=== PATIENT | male | born 1980 | race African-American/Black ===

== ENCOUNTER 2018-09-09 15:36 | Outpatient (CLI) | payer OTHER ==
--- NOTE | 2018-09-09 16:46 | MRI ---
LEFT KNEE MRI WITHOUT IV CONTRAST: History: Left knee pain since April. Technique: Multiplanar, multisequence MRI examination of the left knee is performed. There is some very subtle f ibrillation of the lateral patellar facet with a small focus of slight correlated bulging of the infe rior central patellar facet, evidence for some chondromalacia patella. No abnormal joint effusion. Th ere is a small focus of slight altered signal within the lateral femoral condyle cartilage. No abnorm al joint effusion. Medial and lateral menisci, anterior and posterior cruciate ligaments, collateral ligament complexes, and quadriceps and patellar tendons are intact. Extensor mechanism appears unrema rkable. Trace fluid in the popliteal fossa. No osteochondral defect or significant abnormal marrow si gnal. IMPRESSION: Minimal chondromalacia patella with a very small focal area of slightly altered signal within the lat eral femoral condyle cartilage as well. No evidence for other significant acute internal derangement. POS: [facility]
== END 2018-09-09 15:37 | disposition home or self-care (01) ==
LOC: SCSMRI 15:36
PROVIDERS: ATTEND Family Medicine
DX: M23.92 Unspecified internal derangement of left knee (principal); M22.42 Chondromalacia patellae, left knee

== ENCOUNTER 2019-02-12 08:21 | Outpatient (CLI) | payer OTHER | END 2019-02-12 08:22 | disposition home or self-care (01) | LOC: CTENTCT 08:21 | PROVIDERS: ATTEND Student in an Organized Health Care Education/Training Program | DX: R09.82 Postnasal drip (principal) | CPT/HCPCS: 70486 ==

== ENCOUNTER 2019-02-25 07:53 | Day surgery (SDC) | payer OTHER ==
[2019-02-25] MEDS ORDERED: Oxymetazoline HCl 0.05% ( 15 ML ) ONE ×2 (08:42→13:19)
[2019-02-25] MEDS ORDERED: Fentanyl 100 MCG/2 ML VIAL ONE (12:27)
[2019-02-25] MEDS ORDERED: Ondansetron PF 4 MG/2 ML Vial ONE (12:45)
[2019-02-25] MEDS ORDERED: PROPOFOL 200 MG/20 ML VIAL ONE (12:45)
[2019-02-25] MEDS ORDERED: Rocuronium Bromide 10 MG/ML (10ML VIAL) ONE (12:45)
[2019-02-25] MEDS ORDERED: Ketorolac Tromethamine 30 MG/ML VIAL ONE (12:45)
[2019-02-25] MEDS ORDERED: Dexamethasone 20 MG/5 ML VIAL ONE (12:45)
[2019-02-25] MEDS ORDERED: HYDROcodone/Acetaminophen 5/325 mg Tablet ONE (16:45)
--- NOTE | 2019-02-26 09:43 | OP ---
DATE OF PROCEDURE: 02/25/2019 PREOPERATIVE DIAGNOSES: Chronic rhinosinusitis and recurrent acute sinusitis. POSTOPERATIVE DIAGNOSES: Chronic rhinosinusitis and recurrent acute sinusitis. PROCEDURES PERFORMED: Bilateral image-guided endoscopic sinus surgery, bilateral maxillary antrostomies with removal of tissue inside the maxillary sinuses, bilateral total ethmoidectomy, bilateral sphenoidotomy with removal of tissue from inside the sphenoid sinuses, bilateral frontal sinusotomy with removal of tissue from inside the frontal sinuses, and bilateral lateralization of inferior turbinates. PERMIT: Procedures, benefits, risks including those of bleeding, infection, injury to anesthesia, allergic reactions, cerebrospinal fluid leak necessitating revision or repair and alternatives were reviewed with the patient and family, who expressed understanding of the information. The consent form was then signed and witnessed and a paper copy of the consent form is available for review in the paper chart. INDICATIONS: The patient is a male patient presenting with recurrent acute sinusitis with chronic sinus symptoms and in between infections and also postoperative nasal drainage. CT evaluation shows inflammation throughout pansinus inflammation and partial opacification. The patient was brought to the operating room now for operative treatment. ASSISTANTS: None. FINDINGS: Inflammation, edematous mucosa, polypoid tissue and polyps throughout the sinuses, and purulence sound in the ethmoid and maxillary sinuses. DESCRIPTION OF PROCEDURE: The patient was brought to the operating room and laid supine on the operating room table. General endotracheal anesthesia was administered. The patient's bed was pulled down inferiorly. The septum and bilateral axillas were infiltrated with 1% lidocaine with 1:100,000 epinephrine and six Afrin-soaked cottonoids were placed bilaterally in the nasal cavities, 3 on each side, and the patient was prepped and draped in the usual fashion. Image guidance was then calibrated and used throughout the case for localization. The nose was then evaluated with rigid nasal endoscopy. Nasal polyposis was present in the ethmoid sinuses bilaterally. An oscillating debrider was used to remove the small polypoid tissue. At this point, the sinuses were evaluated and a maxillary antrostomy was performed using backbiter and oscillating microdebrider. First on the left side, the uncinate was taken down all the way toward the frontal recess. After this was performed, next, the maxillary antrum was opened widely using an oscillating microdebrider. Polyps removed from inside the maxillary sinus using oscillating debrider. After this was performed, next, the anterior ethmoid bulla was taken down and utilizing an oscillating debrider followed by opening up of the superior meatus utilizing microdebrider. The superior turbinate was then identified just medial to the superior turbinates. Opening of the sphenoid os was identified. The entire face of the sphenoid was then taken down using a two Kerrison punch followed by removal of polypoid tissue from inside the sphenoid sinus using Kerrison and microdebrider. The skull base was then traced from the posterior to anterior direction, removing posterior and anterior ethmoid air cells, taking care to avoid injury to the cribriform plate and lamina papyracea. This line was straight to the frontal recess and frontal recess was widely opened using chain Kerrison punch and a mushroom punch. After this was performed, the same procedure was performed on the opposite side with similar results. Next, the antrum was opened utilizing the same backbiter and oscillating debrider in same fashion with removal of contents from the maxillary sinus utilizing a microdebrider. Next, the anterior ethmoid bulla was taken down with the microdebrider. The superior meatus was found and then opened up, utilizing a debrider just medial to the superior turbinate. The sphenoid os was identified and opened using two Kerrison punch. Polyps and inflammatory tissue were removed from inside the sphenoid sinus followed by tracing to the skull base from posterior to anterior, removing the posterior and anterior ethmoid air cells using two Kerrison and microdebrider. Care was taken to avoid injury to the lamina papyracea and cribriform plate. This was then led into the frontal sinus and the frontal sinus was opened widely using combination of chain Kerrison punch, as well as small mushroom punch. The sinuses were then irrigated copiously and meticulous hemostasis was maintained. Afterwards, Propel stents were placed in bilateral frontal recesses and NasoPore packing with bacitracin was placed bilaterally in the middle meatus. The endoscopes were withdrawn and patient tolerated the procedure well without complication, and then was turned back to Anesthesia for emergence. Estimated blood loss was 100 mL. There were no drains, specimens, or implants. Please see Anesthesia report for fluids. Job ID: [id number] [id number]
== END 2019-02-25 17:26 | disposition home or self-care (01) ==
LOC: SDC 07:53
PROVIDERS: ATTEND Student in an Organized Health Care Education/Training Program
PROC: 09BX8ZZ Excision of Left Sphenoid Sinus, Via Natural or Artificial Opening Endoscopic (ICD-10-PCS; principal; 2019-02-25)
PROC: 8E09XBZ Computer Assisted Procedure of Head and Neck Region (ICD-10-PCS; principal; 2019-02-25)
PROC: 09BR8ZZ Excision of Left Maxillary Sinus, Via Natural or Artificial Opening Endoscopic (ICD-10-PCS; principal; 2019-02-25)
PROC: 09BQ8ZZ Excision of Right Maxillary Sinus, Via Natural or Artificial Opening Endoscopic (ICD-10-PCS; principal; 2019-02-25)
PROC: 09BS8ZZ Excision of Right Frontal Sinus, Via Natural or Artificial Opening Endoscopic (ICD-10-PCS; principal; 2019-02-25)
PROC: 09TU8ZZ Resection of Right Ethmoid Sinus, Via Natural or Artificial Opening Endoscopic (ICD-10-PCS; principal; 2019-02-25)
PROC: 09BW8ZZ Excision of Right Sphenoid Sinus, Via Natural or Artificial Opening Endoscopic (ICD-10-PCS; principal; 2019-02-25)
PROC: 09BT8ZZ Excision of Left Frontal Sinus, Via Natural or Artificial Opening Endoscopic (ICD-10-PCS; principal; 2019-02-25)
PROC: 09TV8ZZ Resection of Left Ethmoid Sinus, Via Natural or Artificial Opening Endoscopic (ICD-10-PCS; principal; 2019-02-25)
DX: J01.41 Acute recurrent pansinusitis (principal); J32.4 Chronic pansinusitis; J34.2 Deviated nasal septum; J34.3 Hypertrophy of nasal turbinates; J33.9 Nasal polyp, unspecified; G43.909 Migraine, unspecified, not intractable, without status migrainosus; J30.9 Allergic rhinitis, unspecified; Z88.2 Allergy status to sulfonamides
CPT/HCPCS: J1100; J1885; J2405; J2704; J3010

== ENCOUNTER 2022-01-30 19:30 | Outpatient (CLI) | payer OTHER | END 2022-01-30 19:31 | disposition home or self-care (01) | LOC: SLEEPLAB 19:30 | PROVIDERS: ATTEND Family Medicine | DX: G47.33 Obstructive sleep apnea (adult) (pediatric) (principal); G47.10 Hypersomnia, unspecified; R06.83 Snoring; I10 Essential (primary) hypertension; Z68.27 Body mass index [BMI] 27.0-27.9, adult | CPT/HCPCS: 95810 ==

== ENCOUNTER 2022-02-08 19:00 | Outpatient (CLI) | payer OTHER | END 2022-02-08 19:01 | disposition home or self-care (01) | LOC: SLEEPLAB 19:00 | PROVIDERS: ATTEND Family Medicine | DX: G47.33 Obstructive sleep apnea (adult) (pediatric) (principal); R06.83 Snoring | CPT/HCPCS: 95811 ==